=== PATIENT | male | born 1990 | race Two or more races ===

== ENCOUNTER 2020-06-09 11:18 | Emergency (ER) | payer MEDICAID, OTHER ==
[~2020-06-09] VITALS: Ht 175.3 cm; Wt 95.3 kg
[2020-06-09 13:17] VITALS: BP 133/92
== END 2020-06-09 13:53 | disposition home or self-care (01) ==
LOC: ER 11:18
DX: S01.112A Laceration without foreign body of left eyelid and periocular area, initial encounter (principal); Z88.0 Allergy status to penicillin; Z88.8 Allergy status to other drugs, medicaments and biological substances; W22.09XA Striking against other stationary object, initial encounter; Y93.89 Activity, other specified; Y92.89 Other specified places as the place of occurrence of the external cause; Y99.8 Other external cause status
CPT/HCPCS: 12013; 99282; J2001

== ENCOUNTER 2020-06-16 10:35 | Emergency (ER) | payer MEDICAID ==
[~2020-06-16] VITALS: Ht 175.3 cm; Wt 95.3 kg
[2020-06-16 10:37] VITALS: BP 126/79
== END 2020-06-16 11:28 | disposition home or self-care (01) ==
LOC: ER 10:35
DX: S01.112D Laceration without foreign body of left eyelid and periocular area, subsequent encounter (principal); Z88.2 Allergy status to sulfonamides; X58.XXXD Exposure to other specified factors, subsequent encounter